=== PATIENT | male | born 2000 | race African-American/Black ===

== ENCOUNTER 2019-01-14 12:25 | Emergency (ER) | payer SELFPAY ==
[~2019-01-14] VITALS: Ht 177.8 cm; Wt 72.6 kg
[2019-01-14 14:53] VITALS: BP 108/67
== END 2019-01-14 14:54 | disposition home or self-care (01) ==
LOC: ER 12:25
DX: N50.89 Other specified disorders of the male genital organs (principal)

== ENCOUNTER 2023-11-08 09:53 | Emergency (ER) | payer OTHER ==
[~2023-11-08] VITALS: Ht 177.8 cm; Wt 97.1 kg
[2023-11-08 12:13] VITALS: BP 115/66; PULSE 70; RESP 15; TEMP 98.3; O2SAT 98
[2023-11-08] MEDS ORDERED: IBUP-1454 PO (12:23)
[2023-11-08] MEDS ORDERED: METH4PAK PO (12:23)
== END 2023-11-08 12:39 | disposition home or self-care (01) ==
LOC: ER 09:59
DX: T63.441A Toxic effect of venom of bees, accidental (unintentional), initial encounter (principal); K13.0 Diseases of lips; Z79.1 Long term (current) use of non-steroidal anti-inflammatories (NSAID); Z79.899 Other long term (current) drug therapy; Y92.89 Other specified places as the place of occurrence of the external cause